=== PATIENT | male | born 1955 | race Caucasian/White ===

== ENCOUNTER 2025-04-08 08:54 | Day surgery (SDC) | payer OTHER ==
[2025-04-03 10:52] VITALS: BMI 30.1
[2025-04-08] MEDS ORDERED: AFRIN NASAL MIST 15 ML BOT ONE (09:04)
[2025-04-08 09:19] LABS: Hematocrit 46.1 % (38.8-50.0); Hemoglobin 15.8 g/dL (13.5-17.5)
[2025-04-08] MEDS ORDERED: Lidocaine 1% PF 5 ML VIAL ONE (09:19)
[2025-04-08] MEDS ORDERED: PROPOFOL 40 ML ONE (09:19)
[2025-04-08] MEDS ORDERED: Ondansetron PF 4 MG/2 ML Vial ONE (09:19)
[2025-04-08 09:45] LABS: Anion Gap 10 mmol/L (10-20); BUN (Urea Nitrogen) 13 mg/dL (8.4-25.7); Calc. Creatinine Clearance 109 mL/min (70-130); Calcium 9.1 mg/dL (7.8-10.44); Carbon Dioxide 29 mmol/L (23-31); Chloride 106 mmol/L (98-107); Glucose 96 mg/dL (80-115); Potassium 3.9 mmol/L (3.5-5.1); Sodium 141 mmol/L (136-145)
[2025-04-08] MEDS ORDERED: Lidocaine 1% w/Epinephrine 1:200K 30 ML VIAL ONE (09:47)
[2025-04-08] MEDS ORDERED: Bacitracin 1 PK ONE (09:47)
[2025-04-08] MEDS ORDERED: PHENYLEPHRINE-NS 100 MCG/ML 10 ML SYRINGE ONE (10:30)
[2025-04-08] MEDS ORDERED: Oxymetazoline HCl 0.05% (15 ML) ONE (10:34)
[2025-04-08] MEDS ORDERED: HYDROcodone/Acetaminophen 5/325 mg Tablet ONE (12:18)
== END 2025-04-08 12:35 | disposition home or self-care (01) ==
LOC: CSHSDC 08:54
PROVIDERS: ATTEND Otolaryngology Plastic Surgery within the Head & Neck
PROC: 099T8ZZ Drainage of Left Frontal Sinus, Via Natural or Artificial Opening Endoscopic (ICD-10-PCS; principal; 2025-04-08)
PROC: 099Q8ZZ Drainage of Right Maxillary Sinus, Via Natural or Artificial Opening Endoscopic (ICD-10-PCS; 2025-04-08)
PROC: 099R8ZZ Drainage of Left Maxillary Sinus, Via Natural or Artificial Opening Endoscopic (ICD-10-PCS; 2025-04-08)
PROC: 099S8ZZ Drainage of Right Frontal Sinus, Via Natural or Artificial Opening Endoscopic (ICD-10-PCS; 2025-04-08)
PROC: 09TL8ZZ Resection of Nasal Turbinate, Via Natural or Artificial Opening Endoscopic (ICD-10-PCS; 2025-04-08)
DX: J32.8 Other chronic sinusitis (principal); J34.3 Hypertrophy of nasal turbinates; J34.2 Deviated nasal septum; J34.89 Other specified disorders of nose and nasal sinuses; J33.9 Nasal polyp, unspecified; J45.909 Unspecified asthma, uncomplicated; I10 Essential (primary) hypertension; I25.10 Atherosclerotic heart disease of native coronary artery without angina pectoris; E78.5 Hyperlipidemia, unspecified; G43.909 Migraine, unspecified, not intractable, without status migrainosus; Z90.89 Acquired absence of other organs; Z90.49 Acquired absence of other specified parts of digestive tract; Z88.8 Allergy status to other drugs, medicaments and biological substances; Z79.51 Long term (current) use of inhaled steroids; Z79.82 Long term (current) use of aspirin; Z79.899 Other long term (current) drug therapy
CPT/HCPCS: 30140; 31255; 31256; 31267; 61782; 80048; 85014; 85018; J1100; J2405; J2704; J3010; 36415